=== PATIENT | female | born 1965 | race African-American/Black ===

== ENCOUNTER 2017-08-07 17:55 | Emergency (ER) | payer OTHER ==
[~2017-08-07] VITALS: Ht 162.6 cm; Wt 104.3 kg
--- NOTE | 2017-08-07 18:08 | Emergency Room Report ---
History of Present Illness General Chief Complaint: Medical Clearance Source: Patient, EMS Present Illness HPI The patient was being arrested for theft. While she was being arrested she started complaining of chest pain shortness of breath. Paramedics were called and transported the patient to us. The patient is denying any symptoms at this time. To me she does complain about some left-sided facial weakness, some edema and discoloration of her right lower leg. She also states she feels tired today. She denies taking her usual medications this morning. She also is requesting a breathing treatment. She admits cocaine and alcohol. No NVD, headache, NVD, dysuria. No SI or HI. Allergies: Coded Allergies: AMPICILLIN (Verified Allergy, Unknown, 08/07/17) Patient History Past Medical History: see triage record Social History: Reports: smoking - she denied this to me but said "yes" to RN, alcohol use, drug use Social History Narrative Lives in a home Reviewed Nursing Documentation: PMH: Agreed, PSxH: Agreed Nursing Documentation-PMH Past Medical History: No History, Except For Hx Asthma: Yes Review of Systems All Other Systems: negative except mentioned in HPI Physical Exam Vital Signs Date Time Temp Pulse Resp B/P (MAP) Pulse Ox O2 Delivery O2 Flow Rate FiO2 08/07/17 17:49 97.8 80 16 146/92 100 Room Air 97.9 Sp02 EP Interpretation: reviewed, normal General Appearance: well appearing, no apparent distress, GCS 15 Head: normocephalic Eyes: bilateral eye normal inspection, bilateral eye PERRL ENT: moist mucus membranes, other - slight facial assymmetry with periorbital minimal swelling Neck: supple Respiratory: wheezing, expiration - minimal Cardiovascular #1: regular rate, rhythm Cardiovascular #2: 2+ radial (R) Gastrointestinal: normal inspection, normal bowel sounds, non tender, no mass, non-distended Musculoskeletal: back normal, gait/station normal, normal range of motion Neurologic: alert, oriented x3, motor strength/tone normal, DTRs symmetric, sensory intact, cerebellar normal, normal gait, speech normal Psychiatric: depressed affect - and demanding food Skin: warm/dry, other - venous disease R lower leg Medical Decision Making Diagnostic Impression: Primary Impression: Dyspnea Qualified Codes: R06.00 - Dyspnea, unspecified Additional Impressions: Polysubstance abuse Edema Qualified Codes: R60.0 - Localized edema Venous disease Bronchospasm ER Course Patient presents in custody c/o cp, sob and L facial weakness. DDx: AMI, ACS, asthma, PNA, bronchitis, Lopes's, substance abuse amongst others. Exam against CVA and CT not indicated. Evaluation with EKG, CXR and labs. Breathing treatment ordered. EKG without injury. CXR no infiltrates. Labs with normal CBC (sl inc eos), normal CMP and troponin. UA clear. Released on OR. Improved with treatment. Requesting food. Requested HCTZ (has some edema and venous disease). Discussed the need for CA and follow up. Patient stable for outpatient observation and treatment. (Patient wanted to take pillows and blankets.) Laboratory Tests Test 08/07/17 19:05 08/07/17 19:45 White Blood Count 5.0 K/UL (4.8-10.8) Red Blood Count 5.58 M/UL (4.20-5.40) H Hemoglobin 14.8 G/DL (12.0-16.0) Hematocrit 47.6 % (37.0-47.0) H Mean Corpuscular Volume 85 FL (80-99) Mean Corpuscular Hemoglobin 26.6 PG (27.0-31.0) L Mean Corpuscular Hemoglobin Concent 31.2 G/DL (32.0-36.0) L Red Cell Distribution Width 19.1 % (11.6-14.8) H Platelet Count 230 K/UL (150-450) Mean Platelet Volume 8.6 FL (6.5-10.1) Neutrophils (%) (Auto) 63.0 % (45.0-75.0) Lymphocytes (%) (Auto) 26.1 % (20.0-45.0) Monocytes (%) (Auto) 5.0 % (1.0-10.0) Eosinophils (%) (Auto) 4.3 % (0.0-3.0) H Basophils (%) (Auto) 1.6 % (0.0-2.0) Prothrombin Time 10.5 SEC (9.30-11.50) Prothrombin Time INR 1.0 (0.9-1.1) PTT 23 SEC (23-33) Sodium Level 139 MMOL/L (136-145) Potassium Level 4.9 MMOL/L (3.5-5.1) Chloride Level 104 MMOL/L (98-107) Carbon Dioxide Level 32 MMOL/L (21-32) Anion Gap 3 mmol/L (5-15) L Blood Urea Nitrogen 11 mg/dL (7-18) Creatinine 0.9 MG/DL (0.55-1.30) Estimate Glomerular Filtration Rate > 60 mL/min (>60) Glucose Level 105 MG/DL (74-106) Calcium Level 9.7 MG/DL (8.5-10.1) Total Bilirubin 0.3 MG/DL (0.2-1.0) Aspartate Amino Transferase (AST) 51 U/L (15-37) H Alanine Aminotransferase (ALT) 10 U/L (12-78) L Alkaline Phosphatase 80 U/L (46-116) Total Creatine Kinase 362 U/L (26-308) H Troponin I 0.034 ng/mL (0.000-0.056) Pro-B-Type Natriuretic Peptide 635 pg/mL (0-125) H Total Protein 6.9 G/DL (6.4-8.2) Albumin 3.0 G/DL (3.4-5.0) L Globulin 3.9 g/dL Albumin/Globulin Ratio 0.8 (1.0-2.7) L Serum Alcohol < 3 mg/dL Urine Color Pale yellow Urine Appearance Clear Urine pH 7 (4.5-8.0) Urine Specific [place] 1.010 (1.005-1.035) Urine Protein Negative (NEGATIVE) Urine Glucose (UA) Negative (NEGATIVE) Urine Ketones Negative (NEGATIVE) Urine Occult Blood Negative (NEGATIVE) Urine Nitrite Negative (NEGATIVE) Urine Bilirubin Negative (NEGATIVE) Urine Urobilinogen Normal MG/DL (0.0-1.0) Urine Leukocyte Esterase Negative (NEGATIVE) Urine Opiates Screen Negative (NEGATIVE) Urine Barbiturates Screen Negative (NEGATIVE) Phencyclidine (PCP) Screen Negative (NEGATIVE) Urine Amphetamines Screen Negative (NEGATIVE) Urine Benzodiazepines Screen Negative (NEGATIVE) Urine Cocaine Screen Positive (NEGATIVE) H Urine Marijuana (THC) Screen Negative (NEGATIVE) EKG Diagnostic Results Rate: normal Rhythm: NSR ST Segments: no acute changes - LAE Rhythm Strip Diag. Results EP Interpretation: yes Rhythm: NSR, no PVC's, no ectopy Chest X-Ray Diagnostic Results Chest X-Ray Diagnostic Results : Chest X-Ray Ordered: Yes # of Views/Limited/Complete: 1 View Indication: Other EP Interpretation: Yes Interpretation: no consolidation, no effusion, no pneumothorax, other - inc cor Impression: Other Electronically Signed by: Zuhair Rivera MD Last Vital Signs Date Time Temp Pulse Resp B/P (MAP) Pulse Ox O2 Delivery O2 Flow Rate FiO2 08/07/17 21:28 97.9 88 19 135/89 99 Room Air 97.9 Status: improved Disposition: HOME, SELF-CARE Condition: Improved Scripts Albuterol Sulfate* (ALBUTEROL SULFATE MDI*) 8.5 Gm Hfa.aer.ad 2 PUFF INH Q6H, #1 INH 0 Refills Prov: Zuhair Rivera M.D. 08/07/17 Guaifenesin/Dextromethorphan (ROBITUSSIN COUGH-CHEST DM LIQ) 237 Ml Liquid 5 ML PO Q6HR, #120 ML Prov: Zuhair Rivera M.D. 08/07/17 Hydrochlorothiazide* (HYDROCHLOROTHIAZIDE*) 12.5 Mg Capsule 12.5 MG ORAL DAILY, #20 CAP Prov: Zuhair Rivera M.D. 08/07/17 Zuhair Rivera M.D. Aug 07, 2017 18:08
[2017-08-07] MEDS ORDERED: Albuterol ud Inhalation HHN ONE (18:30)
[2017-08-07 19:24] LABS: BASOPHILS % (AUTO) 1.6 % (0.0-2.0); EOSINOPHILS % (AUTO) 4.3 % (0.0-3.0); HEMATOCRIT 47.6 % (37.0-47.0); HEMOGLOBIN 14.8 G/DL (12.0-16.0); LYMPHOCYTES % (AUTO) 26.1 % (20.0-45.0); MEAN CORPUSCULAR VOLUME 85 FL (80-99); PLATELET COUNT 230 K/UL (150-450); RED BLOOD COUNT 5.58 M/UL (4.20-5.40); RED CELL DISTRIBUTION WIDTH 19.1 % (11.6-14.8)
[2017-08-07 19:37] VITALS: BP 146/92
[2017-08-07 19:37] LABS: ANION GAP 3 mmol/L (5-15); BLOOD UREA NITROGEN 11 mg/dL (7-18); CALCIUM 9.7 MG/DL (8.5-10.1); CARBON DIOXIDE 32 MMOL/L (21-32); CHLORIDE 104 MMOL/L (98-107); CREATININE 0.9 MG/DL (0.55-1.30); POTASSIUM 4.9 MMOL/L (3.5-5.1); SODIUM 139 MMOL/L (136-145)
[2017-08-07 19:48] LABS: ALANINE AMINOTRANSFERASE 10 U/L (12-78); ALBUMIN/GLOBULIN RATIO 0.8 (1.0-2.7); ALKALINE PHOSPHATASE 80 U/L (46-116); ASPARTATE AMINO TRANSFERASE 51 U/L (15-37); BILIRUBIN,TOTAL 0.3 MG/DL (0.2-1.0); CREATINE KINASE 362 U/L (26-308)
[2017-08-07 20:08] LABS: APPEARANCE,URINE CLEAR; BILIRUBIN, URINE NEGATIVE (NEGATIVE); COLOR,URINE PALE YELLOW; GLUCOSE, URINE (UA) NEGATIVE (NEGATIVE); KETONES,URINE NEGATIVE (NEGATIVE); LEUKOCYTE ESTERASE ,URINE NEGATIVE (NEGATIVE); NITRITE,URINE NEGATIVE (NEGATIVE); PH,URINE 7 (4.5-8.0); PROTEIN,URINE NEGATIVE (NEGATIVE); UROBILINOGEN,URINE NORMAL MG/DL (0.0-1.0)
[2017-08-07] MEDS ORDERED: HYDROCHLOROTH12.5 M2 ORAL (20:55)
[2017-08-07] MEDS ORDERED: ROBITUSSIN COU237 M1 PO (20:55)
[2017-08-07] MEDS ORDERED: ALBUTEROL SULF8.5 GM INH (20:55)
[2017-08-07 21:15] VITALS: BP 135/89
[2017-08-07 21:28] VITALS: BP 135/89
--- NOTE | 2017-08-08 14:47 | Diagnostic Imaging Report ---
Indication: Dyspnea Technique: One view of the chest Comparison: none Findings: The heart is enlarged. The lungs pleural spaces are clear Impression: Cardiomegaly No acute process. This agrees with the preliminary interpretation provided by the emergency room physician
--- NOTE | 2017-08-10 15:13 | Cardiology Report ---
APPROVED REPORT EKG Measurement Heart [id number] Normal sinus rhythm Possible Left atrial enlargement Nonspecific ST and T wave abnormality Prolonged QT Abnormal ECG
== END 2017-08-07 21:28 | disposition home or self-care (01) ==
LOC: EDBD 17:55 → EMR 18:19 → EDBD 18:19 → EMR 21:28
DX: R06.00 Dyspnea, unspecified (principal); J45.909 Unspecified asthma, uncomplicated; F19.10 Other psychoactive substance abuse, uncomplicated; R60.0 Localized edema; I87.9 Disorder of vein, unspecified; R07.9 Chest pain, unspecified; Z88.0 Allergy status to penicillin; R29.810 Facial weakness; I51.7 Cardiomegaly
CPT/HCPCS: 36415; 71045; 80053; 80307; 80329; 81003; 82550; 83880; 84484; 85025; 85610; 85730; 93005; 94640; 94664; 99284